=== PATIENT | female | born 1970 | race Caucasian/White ===

== ENCOUNTER 2017-02-18 05:42 | Day surgery (SDC) | payer BC ==
[~2017-02-18] VITALS: Ht 177.8 cm; Wt 131.5 kg
[~2017-02-18 05:42] MED LIST: ALLEGRA ALLERG180 MG PO; GLUCOPHAGE1000 MG PO; IRON325 M1 PO; LANTUS 10100 UNITS/ SC; ONCE DAILY1 EACH PO; PRILOSEC20 MG PO; PROZAC40 MG PO; VITAMIN D2000 UNI1 PO
[2017-02-18 06:05] VITALS: BP 141/69
[2017-02-18 06:33] LABS: POINT-OF-CARE METER ID UU14174212
[2017-02-18 09:00] LABS: POINT-OF-CARE METER ID UU13113675
[2017-02-18 09:41] LABS: POINT-OF-CARE METER ID UU13113675
[2017-02-18 10:14] LABS: POINT-OF-CARE METER ID UU13113675
[2017-02-18 10:53] LABS: POINT-OF-CARE METER ID UU13113675
[2017-02-18 10:59] VITALS: BP 129/64
[2017-02-18 11:55] VITALS: BP 139/63
[2017-02-18 12:55] VITALS: BP 149/66
== END 2017-02-18 13:20 | disposition home or self-care (01) ==
LOC: SDC 05:42
PROVIDERS: Surgery
PROC: 0FT44ZZ Resection of Gallbladder, Percutaneous Endoscopic Approach (ICD-10-PCS; principal; 2017-02-18)
DX: K80.10 Calculus of gallbladder with chronic cholecystitis without obstruction (principal); Z98.84 Bariatric surgery status; E11.9 Type 2 diabetes mellitus without complications; G47.33 Obstructive sleep apnea (adult) (pediatric); I10 Essential (primary) hypertension; F41.8 Other specified anxiety disorders; E66.09 Other obesity due to excess calories; Z68.41 Body mass index [BMI] 40.0-44.9, adult; Z87.891 Personal history of nicotine dependence; Z79.84 Long term (current) use of oral hypoglycemic drugs
CPT/HCPCS: 82948; 88304; J0131; J0330; J0690; J1644; J1885; J2250; J2405; J2550; J2710; J2765; J3010; S0020